=== PATIENT | female | born 1955 | race Caucasian/White ===

== ENCOUNTER → 2017-10-02 | Outpatient (CLI) | payer OTHER ==
[~2017-10-02] MED LIST: CALC-141 PO; CHOL500050 PO; CYCL-259 PO; DOXY100T PO; ESTR1VAG VG; FLUO40CA2 PO; MULT1TAB60 PO; OMEG500C PO; OXYC-302 PO; TRAZ50TA18 PO; TURM500C7 PO; VALA10004 PO
== END | disposition home or self-care (01) ==
LOC: CFH 06:55
PROVIDERS: ATTEND Family Medicine
DX: Z12.31 Encounter for screening mammogram for malignant neoplasm of breast (principal)
CPT/HCPCS: 77063; 77067

== ENCOUNTER → 2018-10-25 | Outpatient (CLI) | payer OTHER ==
[~2018-10-25] MED LIST changes: -TRAZ50TA18 PO; +TRAZ50TA66 PO
== END | disposition home or self-care (01) ==
LOC: CFH 10:02
PROVIDERS: ATTEND Orthopaedic Surgery
DX: M85.88 Other specified disorders of bone density and structure, other site (principal)
CPT/HCPCS: 77080

== ENCOUNTER 2019-04-01 09:17 | Outpatient (CLI) | payer OTHER | END 2019-04-01 23:59 | disposition home or self-care (01) | LOC: CFH 09:17 | PROVIDERS: ATTEND Nurse Practitioner | DX: Z12.31 Encounter for screening mammogram for malignant neoplasm of breast (principal) | CPT/HCPCS: 76641; 77063; 77067 ==